=== PATIENT | female | born 1990 | race Two or more races ===

== ENCOUNTER 2024-05-30 06:26 | Inpatient (IN) | payer OTHER ==
[~2024-05-30] VITALS: Ht 162.6 cm; Wt 95.0 kg
[2024-05-30 07:25] LABS: Urine Bacteria FEW /hpf (None Seen); Urine Blood Negative /uL (Negative); Urine Clarity Turbid (Clear); Urine Color Yellow (Yellow); Urine Mucus FEW (None Seen); Urine Protein, UAD TRACE (Negative); Urine Specific Gravity 1.037 (1.001-1.035); Urine Urobilinogen Normal (Negative); Urine WBC 2 /hpf (0 - 5); Urine pH 5.5 (5.0-9.0)
[2024-05-30] MEDS: HYDROcodone-ACET 10/325MG TAB PO ONE (07:42)
[2024-05-30] MEDS: ONDANSETRON ODT 4 MG TAB PO ONE (07:42)
[2024-05-30 08:02] LABS: Basophils # (auto) 0 10 ^3/uL (0-0.2); Basophils % (auto) 0.1 % (0.0-2.0); Eosinophils # (auto) 0.1 10 ^3/uL (0-0.8); Eosinophils % (auto) 0.7 % (0.0-7.0); Hematocrit 41.7 % (36.0-46.0); Lymphocytes # (auto) 1.5 10 ^3/uL (0.4-5.4); Lymphocytes % (auto) 10.7 % (10.0-50.0); Mean Corpuscular Hgb Conc. 33.6 g/dL (32.0-36.0); Mean Corpuscular Volume 86.3 fL (80.0-100.0); Monocytes # (auto) 0.5 10 ^3/uL (0-1.3); Monocytes % (auto) 3.4 % (0.0-12.0); Neutrophils # (auto) 11.8 10 ^3/uL (1.6-8.6); Neutrophils % (auto) 85.1 % (37.0-80.0); Nucleated Red Blood Cells % 0.1 %; Platelet Count (auto) 262 10^3/uL (140-450); Red Blood Cells 4.84 10^6/uL (4.0-5.20); White Blood Cell 13.8 10^3/uL (4.4-10.8)
[2024-05-30 08:12] LABS: Chloride 107 mmol/L (98-107); Potassium 4.7 mmol/L (3.5-5.1); Sodium 141 mmol/L (136-145)
[2024-05-30 08:14] LABS: Anion Gap 8 (5-15); Calcium 9.8 mg/dL (8.7-10.4); Carbon Dioxide 26 mmol/L (20-31)
[2024-05-30 08:19] LABS: BUN/Creatinine Ratio 21.7 (10.0-20.0); Blood Urea Nitrogen 15 mg/dL (9-23); Glucose 96 mg/dL (74-106)
[2024-05-30 09:17] LABS: Lipase 32 U/L (12-53)
[2024-05-30] MEDS ORDERED: CEPH250C PO (09:28)
[2024-05-30] MEDS: PANTOPRAZOLE 40 MG/10 ML VIAL INJ IV ONE (12:30)
[2024-05-30] MEDS: MORPHINE SULFATE INJ 2 MG/ml SYRG IV ONE (12:30)
[2024-05-30] MEDS: SODIUM CHLORIDE 0.9% 1,000 ML IV SCH (12:58)
[2024-05-30] MEDS: metroNIDAZOLE 500MG/100ML 100 ML IV SCH (14:00)
[2024-05-30] MEDS: HYDROcodone-ACET 5/325MG TAB PO PRN (17:46)
[2024-05-30 21:03] VITALS: BP 104/57; PULSE 70; RESP 18; TEMP 98.7; O2SAT 97
[2024-05-30 21:11] VITALS: PULSE 70; RESP 18; O2SAT 97
[2024-05-30] MEDS: ONDANSETRON HCL 4 MG/2 ML VIAL IV PRN (23:09)
[2024-05-30] MEDS: MORPHINE SULFATE INJ 2 MG/ml SYRG IV PRN (23:10)
[2024-05-31 01:04] VITALS: BP 94/54; PULSE 63; RESP 17; TEMP 98.5; O2SAT 97
[2024-05-31 05:00] VITALS: BP 107/68; PULSE 63; RESP 17; TEMP 98.4; O2SAT 92
[2024-05-31] MEDS: ACETAMINOPHEN 325 MG TAB PO PRN (06:13)
[2024-05-31 07:19] LABS: Anion Gap 4 (5-15); Carbon Dioxide 25 mmol/L (20-31); Chloride 108 mmol/L (98-107); Potassium 3.5 mmol/L (3.5-5.1); Sodium 137 mmol/L (136-145)
[2024-05-31 07:20] LABS: Calcium 8.7 mg/dL (8.7-10.4)
[2024-05-31 07:23] LABS: Basophils # (auto) 0 10 ^3/uL (0-0.2); Basophils % (auto) 0.5 % (0.0-2.0); Eosinophils # (auto) 0 10 ^3/uL (0-0.8); Eosinophils % (auto) 1.1 % (0.0-7.0); Hematocrit 34.3 % (36.0-46.0); Hemoglobin 11.8 g/dL (12.2-16.2); Lymphocytes # (auto) 0.9 10 ^3/uL (0.4-5.4); Lymphocytes % (auto) 21.3 % (10.0-50.0); Mean Corpuscular Hemoglobin 29.9 pg (28.0-32.0); Mean Corpuscular Hgb Conc. 34.5 g/dL (32.0-36.0); Mean Corpuscular Volume 86.7 fL (80.0-100.0); Monocytes # (auto) 0.3 10 ^3/uL (0-1.3); Monocytes % (auto) 8.1 % (0.0-12.0); Neutrophils # (auto) 2.8 10 ^3/uL (1.6-8.6); Nucleated Red Blood Cells % 0.1 %; Platelet Count (auto) 198 10^3/uL (140-450); Red Blood Cells 3.96 10^6/uL (4.0-5.20); Red Cell Distribution Width 13.9 % (11.8-14.3); White Blood Cell 4.1 10^3/uL (4.4-10.8)
[2024-05-31 07:25] LABS: BUN/Creatinine Ratio 10.7 (10.0-20.0); Blood Urea Nitrogen 6 mg/dL (9-23); Glucose 101 mg/dL (74-106)
[2024-05-31 08:00] VITALS: BP 100/52; PULSE 57; PULSE 63; RESP 17; RESP 18; TEMP 98; O2SAT 92; O2SAT 96
[2024-05-31] MEDS: PANTOPRAZOLE 40 MG/10 ML VIAL INJ IV SCH (09:56)
[2024-05-31 12:00] VITALS: BP 109/63; PULSE 64; RESP 18; TEMP 98.3; O2SAT 97
[2024-05-31] MEDS ORDERED: MET500T PO (13:25)
[2024-05-31 16:00] VITALS: BP 112/74; PULSE 65; RESP 18; TEMP 98.1; O2SAT 94
[2024-05-31 18:17] VITALS: BP 109/63; PULSE 64; RESP 18; TEMP 98.3; O2SAT 97
== END 2024-05-31 18:50 | disposition home or self-care (01) | DRG 249 ==
LOC: ER 06:26 → OVERFLOW 12:24 → WEST WING 20:15
PROVIDERS: ADMIT Internal Medicine; ATTEND Emergency Medicine
DX: A08.4 Viral intestinal infection, unspecified (principal); K76.0 Fatty (change of) liver, not elsewhere classified; D72.829 Elevated white blood cell count, unspecified; R19.7 Diarrhea, unspecified; E66.9 Obesity, unspecified; Z90.49 Acquired absence of other specified parts of digestive tract; Z68.36 Body mass index [BMI] 36.0-36.9, adult
CPT/HCPCS: 36415; 74176; 80048; 81001; 83690; 84702; 85025; 87040; 87045; 87086; 87427; G0378; J2405; J2470; J3490; Q0162

== ENCOUNTER 2024-09-29 07:06 | Emergency (ER) | payer OTHER ==
[~2024-09-29] VITALS: Ht 165.1 cm; Wt 92.5 kg
[~2024-09-29 07:06] MED LIST: MET500T PO
[2024-09-29] MEDS ORDERED: AMOX500C2 PO (07:33)
--- NOTE | 2024-09-29 07:34 | ED.PDOC ---
History of Present Illness HPI Comments 34-year-old female came to the ER because she fell this morning at her house. She tripped over her feet before hitting the ground she did hit a coffee table with her left side of forehead causing skin breakage. She is also complaining of left shoulder pain. Denies any past medical history. She did have a gallbladder surgery. Denies loss of consciousness. Denies neck pain. Denies abdominal pain. Able to ambulate without difficulty after the fall. Denies any other symptoms. Time Seen by MD: 07:25 Reviewed Notes: Nurses Notes, Medications, Allergies Allergies: Coded Allergies: NO KNOWN ALLERGIES (Unverified , 05/30/24) Home Meds Active Scripts Metronidazole (Metronidazole) 500 Mg Tab, 500 MG PO TID for 5 Days, #15 TAB Prov:YOUSUF VILLASENOR DO 05/31/24 Information Source: Patient Mode of Arrival: Ambulatory Severity: Moderate Timing: Hours Duration: Since onset Past Medical History PAST MEDICAL HISTORY: Denies Surgical History: Cholecystectomy [employer] History: No Pertinent [employer] History Social History Smoker: Non-Smoker Alcohol: Denies ETOH Use Drugs: Denies Drug Use Constitutional: denies: chills, diaphoresis, fatigue, fever, malaise, sweats, weakness, others EENTM: denies: blurred vision, double vision, ear bleeding, ear discharge, ear drainage, ear pain, ear ringing, eye pain, eye redness, hearing loss, mouth pain, mouth swelling, nasal discharge, nose bleeding, nose congestion, nose pain, photophobia, tearing, throat pain, throat swelling, voice changes, others Respiratory: denies: cough, hemoptysis, orthopnea, SOB at rest, shortness of breath, SOB with excertion, stridor, wheezing, others Cardiovascular: denies: chest pain, dizzy spells, diaphoresis, Dyspnea on exertion, edema, irregular heart beat, left arm pain, lightheadedness, palpitations, PND, syncope, others Gastrointestinal: denies: abdomen distended, abdominal pain, blood streaked bowels, constipated, diarrhea, dysphagia, difficulty swallowing, hematemesis, melena, nausea, poor appetite, poor fluid intake, rectal bleeding, rectal pain, vomiting, others Genitourinary: denies: abnormal vagina bleeding, burning, dyspareunia, dysuria, flank pain, frequency, hematuria, incontinence, pain, , vagina discharge, urgency, others Neurological: denies: dizziness, fainting, headache, left sided numbness, left sided weakness, numbness, paresthesia, pre-existing deficit, right sided numbness, right sided weakness, seizure, speech problems, tingling, tremors, weakness, others Musculoskeletal: denies: back pain, gout, joint pain, joint swelling, muscle pain, muscle stiffness, neck pain, others Integumetry: reports: laceration (Forehead); denies: bruises, change in color, change in hair/nails, dryness, lesions, lumps, rash, wounds, others Allergic/Immunocompromised: denies: Difficulty Healing, Frequent Infections, Hives, Itching, others Hematologic/Lymphatic: denies: anemia, blood clots, easy bleeding, easy bruising, swollen glands, others Endocrine: denies: excessive hunger, excessive sweating, excessive thirst, excessive urination, flushing, intolerance to cold, intolerance to heat, unexplained weight gain, unexplained weight loss, others Psychiatric: denies: anxiety, bipolar disorder, depression, hopeless, panic disorder, schizophrenia, sleepless, suicidal, others Physical Exam General Appearance: Moderate Distress HEENT: Normal ENT Inspection, Pharynx Normal, TMs Normal Neck: Full Range of Motion, Non-Tender, Normal, Normal Inspection Respiratory: Chest Non-Tender, Lungs Clear, No Accessory Muscle Use, No Respiratory Distress, Normal Breath Sounds Cardiovascular: No Edema, No JVD, No Murmur, No Gallop, Normal Peripheral Pulses, Regular Rate/Rhythm Breast Exam: Deferred Gastrointestinal: No Organomegaly, Non Tender, No Pulsatile Mass, Normal Bowel Sounds, Soft Genitalia: Deferred Pelvic: Deferred Rectal: Deferred Extremities: No calf tenderness, Normal capillary refill, Normal inspection, Normal range of motion, Non-tender, No pedal edema Musculoskeletal : Apperance: Normal Neurologic: Alert, 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 Was a procedure done?: Yes Sedation Sedation?: No Laceration Repair : Location Forehead Length 2 cm irregular Anesthetic: Lidocaine Laceration Repair Prep: Saline Laceration Repair: Number of sutures (Three), Skin Differential Dx Considerations may include: Laceration Wound. X-Ray, Labs, Meds, VS Patient alert. Status post fall. Has a laceration of the left side of the forehead. Vitals stable. Answering all questions. Her tetanus is not up-to-date. Was given tetanus. Has good muscle strength. Explained to the patient. Was told to follow up with her primary care physician. Was told to come back if there is any problem. Time of 1ST Reevaluation: 07:31 Reevaluation 1ST: Unchanged Patient Education/Counseling: Diagnosis, Treatment, Prognosis, Need For Follow Up Family Education/Counseling: No Family Present Departure 1 Departure Time of Disposition: 07:33 Impression: Primary Impression: Head injury Qualified Codes: S09.90XA - Unspecified injury of head, initial encounter Additional Impression: Laceration Disposition: HOME / SELF CARE / HOMELESS Condition: Good e-Prescriptions Amoxicillin Trihydrate (Amoxicillin) 500 Mg Cap 1 CAP PO TID for 7 Days, #21 CAP Prov: LUZ MARIA TURNER MD 09/29/24 Discharged With: Self Critical Care Note Critical Care Time?: No Stability Stability form required: No Heart Score Heart Score: Heart Score Response (Comments) Value History N/A 0 EKG N/A 0 Age N/A 0 Risk Factors N/A 0 Troponin N/A 0 Total 0 LUZ MARIA TURNER MD Sep 29, 2024 07:34
--- NOTE | 2024-09-29 07:46 | DVH ---
CLINICAL INFORMATION: 34 years old, Female; fall injury. TECHNIQUE: Axial imaging was obtained through the brain without contrast. Coronal and sagittal refor matted images were obtained, reviewed, and stored. Images were reviewed in brain and bone windows. A ll CT scans at this medical facility are performed using dose modulation techniques as appropriate to a performed exam including the following: Automated exposure control was utilized; adjustment of the MA and/or KV according to patient size; and use of iterative reconstruction technique. CTDIvol = 58.18 mGy DLP = 1028.88 mGy-cm COMPARISON: None FINDINGS: There is no acute intracranial hemorrhage or extraaxial fluid collection. No mass effect o r midline shift. The ventricles and sulci are within normal limits in size for age. Basal cisterns a re patent. The calvarium is unremarkable. Mild mucosal thickening in the paranasal sinuses. Masto id air cells are clear. Is mild soft tissue swelling and suspected laceration in the left frontotempo ral scalp. IMPRESSION: 1. No CT evidence of acute intracranial abnormality. 2. Soft tissue swelling and suspected laceration in the left frontotemporal scalp.
--- NOTE | 2024-09-29 07:48 | DVH ---
CLINICAL INFORMATION: 34 years old, Female; fall injury. TECHNIQUE: Single AP view of the left shoulder was obtained. COMPARISON: None FINDINGS: No acute fracture. Slight elevation of the distal clavicle with respect to the acromion, o f uncertain chronicity. Overlying soft tissues are grossly unremarkable. IMPRESSION: 1. No evidence of acute fracture. 2. Slight elevation of the distal clavicle relative to the acromion, without significant widening of the acromial humeral interval. Correlate clinically to exclude acute acromioclavicular injury.
[2024-09-29 07:50] VITALS: BP 148/80; PULSE 99; RESP 14; TEMP 97.7; O2SAT 98
[2024-09-29] MEDS: HYDROcodone-ACET 10/325MG TAB PO ONE (08:13)
[2024-09-29] MEDS: TETANUS-DIPTH-ACEL PERTUSSIS 0.5ML SYR Tdap IM ONE (08:13)
[2024-09-29] MEDS: LIDOCAINE HCL 1 % PF INJ 2ML AMP IJ ONE (08:23)
[2024-09-29] MEDS: LIDOCAINE 1% INJ PF 5ML AMP IJ ONE (08:41)
== END 2024-09-29 09:46 | disposition home or self-care (01) ==
LOC: ER 07:06
DX: S09.8XXA Other specified injuries of head, initial encounter (principal); M25.512 Pain in left shoulder; Z90.49 Acquired absence of other specified parts of digestive tract; W01.190A Fall on same level from slipping, tripping and stumbling with subsequent striking against furniture, initial encounter; Y93.89 Activity, other specified; Y92.89 Other specified places as the place of occurrence of the external cause; Y99.8 Other external cause status
CPT/HCPCS: 12011; 70450; 73020; 90471; 90715